=== PATIENT | female | born 1995 | race Caucasian/White ===

== ENCOUNTER 2022-04-21 15:58 | Emergency (ER) | payer OTHER, SELFPAY ==
[2022-04-21 16:00] VITALS: BP 124/92; PULSE 104; RESP 16; TEMP 36.8; O2SAT 100; BMI 28.1
[2022-04-21] MEDS: Ondansetron 4 MG/2 ML Vial IV (19:08)
[2022-04-21] MEDS: 0.9% Normal Saline 1,000 ML 1000 ML IV (19:08)
--- NOTE | 2022-04-21 19:22 | EDS_ITS ---
HPI History of Present Illness Chief Complaint: GI Bleed Informant: patient Narrative Narrative: Patient got up from a nap today. When she got up she threw up once. It was dark brown may be a little bit black but no red blood. No abdominal pain. She threw up 1 more time after she got here. She states it was more yellow than. She has a little bit of nausea now but overall feels better. She is not having pain. She was feeling fine when she went to sleep. No history of GI bleeds. No anticoagulation. No abdominal surgery. Last menstrual cycle was normal and ended about a week ago. No lower abdominal or pelvic pain either. No known history of dyspepsia. PFSH PFSH Home Medications ondansetron 4 mg disintegrating tablet 4 mg PO Q8H PRN nausea and vomiting #10 tabs 04/21/22 [Rx Last Taken Unknown] Allergy/AdvReac Type Severity Reaction Status Date / Time No Known Allergies Allergy Verified 04/21/22 16:01 Social History Smoking Status: Never smoker ROS ROS ED Constitutional Constitutional ED: Denies chills or fever(s) ENT ENT ED: Denies rhinorrhea or sore throat Cardiovascular Cardiovascular: Denies chest pain or palpitations Respiratory/Chest Respiratory/Chest: Denies cough or dyspnea Gastrointestinal Gastrointestinal: Reports nausea and vomiting; Denies abdominal pain, constipation, diarrhea or melena Genitourinary Genitourinary ED: Denies hematuria Musculoskeletal Musculoskeletal: Denies arthralgias or myalgias Integumentary Denies rash Neurologic Neurologic: Denies headache(s), paresthesias or weakness Psychiatric Psychiatric: Denies anxiety Hematologic/Lymphatic Hematologic/Lymphatic: Denies easy bleeding or easy bruising Allergic/Immunologic Allergic/Immunologic ED: Denies urticaria EXAM Physical Exam Const Vital Signs: 04/21/22 16:00 04/21/22 20:37 Temperature 98.3 F 98.3 F Temperature Source Temporal Temporal Pulse Rate 104 H 89 Respiratory Rate 16 16 Blood Pressure 124/92 H 106/64 Blood Pressure Mean 102 78 Pulse Ox 100 100 Oxygen Delivery Method Room Air Room Air Positive well nourished and well developed General Appearance ED: well developed and NAD HEENT Reports moist mucous membranes Eyes EOMs intact bilaterally Neck no lymphadenopathy and supple Resp normal respiratory effort and clear to auscultation bilaterally Cardio regular rate, regular rhythm and no murmurs Rate: Negative for tachycardic GI normal to inspection, nondistended, normoactive bowel sounds, non-tender, non- distended and no masses Inspection: Negative for abdominal distention Palpation: soft; Negative for tender or guarding Back/Spine no CVA tenderness Extremity General Extremety ED: Negative for edema or tenderness General Extremity: Negative for edema Neuro Sensorium / Orientation: alert Psych mental status grossly normal Skin no rashes or lesions noted MDM MDM MDM Narrative Medical decision making narrative: Patient CBC is normal including white count hemoglobin and platelets. Electrolytes show no marked abnormalities. Patient's recheck. Her abdomen is still benign. She has not had recurrent symptoms. We will get her home with meds for nausea even though the nausea is really better. I recommend she take either Prilosec or Nexium once a day for at least the next week to see if we can get her stomach to calm down as I am concerned she may have a component of gastritis. If she has pain, fevers or recurrent vomiting blood in the vomitus or any other concerns she should return. Lab Data Attestation: I reviewed the patient's lab results. Labs: Laboratory Results - last 24 hr 04/21/22 04/21/22 20:33 20:33 WBC 8.3 RBC 5.07 Hgb 14.9 Hct 45.6 MCV 89.9 MCH 29.4 MCHC 32.7 RDW Std Deviation 40.4 RDW Coeff of Vero 12.4 Plt Count 312 MPV 8.9 Immature Gran % (Auto) 0.200 Neut % (Auto) 91.4 H Lymph % (Auto) 4.8 L [place] % (Auto) 3.3 Eos % (Auto) 0.1 Baso % (Auto) 0.2 Absolute Neuts (auto) 7.5 Absolute Lymphs (auto) 0.40 L Nucleated RBC % 0 Differential Comment SEE COMMENT Platelet Estimate ADEQUATE RBC Morphology N CHROM Anisocytosis RARE Macrocytosis RARE Sodium 138 Potassium 3.9 Chloride 107 Carbon Dioxide 24.0 Anion Gap 7 BUN 13 Creatinine 0.80 Estim Creat Clear Calc 104.54 Est GFR (MDRD) Af Amer 112 Est GFR (MDRD) Non-Af 92 BUN/Creatinine Ratio 16.1 Glucose 104 Calcium 8.3 L Discharge Plan Triage Chief Complaint: GI Bleed ED Provider: Santiago Cuadra Dx/Rx/DC Orders Clinical Impression: Nausea & vomiting, History of hematemesis Instructions: ED Gastritis (Adult) Prescriptions: New ondansetron 4 mg tablet,disintegrating 4 mg PO Q8H PRN (Reason: nausea and vomiting) Qty: 10 0RF Primary Care Provider: aRul Boone Referrals: Raul Boone MD [Primary Care Provider] - 1 Week Activity Restrictions/Additional Instructions: Take 1 Nexium or Prilosec ceir-run-welgaix daily for the next week. Disposition Disposition: Home, Self Care
[2022-04-21 20:37] VITALS: BP 106/64; PULSE 89; RESP 16; TEMP 36.8; O2SAT 100
[2022-04-21 20:50] LABS: Absolute Neutrophil Count 7.5 X10^3/uL (2.0-7.7); Basophil# 0.02 X10^3/uL; Basophil% 0.2 % (0-1); Eosinophil# 0.01 X10^3/uL; Eosinophils% 0.1 % (0-5); Hematocrit 45.6 % (37-47); Hemoglobin 14.9 g/dL (12.0-15.0); Lymphocyte % 4.8 % (19-41); Mean Corp Hgb Conc 32.7 g/dL (32-36); Mean Corpuscular Hgb 29.4 pg (27.0-32.0); Mean Corpuscular Volume 89.9 fL (81-99); Mean Platelet Vol. 8.9 fl (6.2-12.0); Monocyte# 0.27 X10^3/uL; Monocyte% 3.3 % (0-10); NRBC Flagged by Analyzer 0 % (0-5); Neutrophil # 7.53 X10^3/uL (2.7-7.7); Neutrophil % 91.4 % (47-70); POSITIVE DIFFERENTIAL YES; Platelet Count 312 K/mm3 (150-450); RBC Distribution Width CV 12.4 % (11.6-14.6); RBC Distribution Width SD 40.4 fl (35.1-43.9); Red Blood Count 5.07 M/mm3 (4.2-5.4); White Blood Count 8.3 K/mm3 (4.4-11.0)
[2022-04-21 21:09] LABS: Anion Gap 7 (5-15); BUN 13 mg/dL (7-18); BUN/Creat Ratio 16.1 RATIO (10-20); Calcium,Total 8.3 mg/dL (8.5-10.1); Chloride 107 mmol/L (98-107); EST Glomerular Filtration Rate 92 mL/min (>60); Est Glom Filt Rate - Afr Amer 112 mL/min (>60); Estimated Creatinine Clearance 104.54 ml/min; Glucose 104 mg/dL (74-106); Potassium 3.9 mmol/L (3.5-5.1); Sodium Level 138 mmol/L (136-145)
[2022-04-21 21:30] LABS: Differential Indicated SCAN CRITERIA MET
[2022-04-21 21:42] LABS: Platelet Estimate ADEQUATE (ADEQ); Red Cell Morphology N CHROM NORMAL (NORM C&C)
[2022-04-21 21:43] LABS: Anisocytosis RARE; Macrocytosis RARE
== END 2022-04-21 22:46 | disposition home or self-care (01) ==
PROVIDERS: Emergency Provider Emergency Medicine; PCP Internal Medicine; Visit Provider Emergency Medicine
DX: K92.2 Gastrointestinal hemorrhage, unspecified (principal); R11.2 Nausea with vomiting, unspecified
CPT/HCPCS: 36415; 80048; 85025; 96361; 96374; 99282; J7030; A4216; J2405

== ENCOUNTER 2024-01-12 13:08 | Emergency (ER) | payer OTHER, SELFPAY ==
[2024-01-12 13:08] VITALS: BP 129/85; PULSE 71; RESP 18; TEMP 36.4; O2SAT 97; BMI 29.9
--- NOTE | 2024-01-12 13:18 | EKG12_ITS ---
Test Reason : PALPS Blood Pressure : / mmHG Vent. Rate : 058 BPM Atrial Rate : 058 BPM P-R Int : 140 ms QRS Dur : 084 ms QT Int : 426 ms P-R-T Axes : 027 028 -04 degrees QTc Int : 418 ms Sinus bradycardia with sinus arrhythmia Poor R wave progression Borderline No previous ECGs available Confirmed by Ranjan Disla ([id number]), editor city NASREEN HALE ([id number]) on 01/15/2024 1:23:03 PM Referred By: Confirmed By:Ranjan Disla
--- NOTE | 2024-01-12 13:36 | RAD_ITS ---
STUDY: X-RAY CHEST REASON FOR EXAM: Female, 28 years old. SOB, lightheaded TECHNIQUE: Frontal and lateral views of the chest. COMPARISON: None. FINDINGS: There are monitoring devices. The lungs are clear and expanded. There is no demonstrated pleural abnormality. Normal size heart. Normal mediastinum and reid. Normal visualized pulmonary arteries. Normal visualized aortic arch and descending thoracic aorta. Normal visualized thoracic spine. Normal visualized ribs, clavicles, and shoulders. There is no demonstrated abnormality of the visualized soft tissue structures of the upper abdomen. RAD/Chest PA and Lateral IMPRESSION: Normal x-ray examination of the chest. Electronically Signed: Benny Sanchez MD at 14:39 EDT ,
[2024-01-12] MEDS: 0.9% Normal Saline (1000mL) 1,000 ML 999 ML IV (13:43)
--- NOTE | 2024-01-12 13:44 | EX.ED.DYSGE1 ---
HPI History of Present Illness Chief Complaint: Palpitations Informant: patient Narrative Narrative: Patient is a 28-year-old female with no significant past medical history, presenting with lightheadedness and near syncope. 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 States she woke up feeling okay in the morning. She states throughout the day she felt she was going to blackout. She reports feeling dizzy and short of breath. She felt like she could not catch her breath. She notes at 1 point she started have some numbness and tingling in her bilateral pinky fingers. Today she does generally feels weak and dizzy. She has a mild headache and reports some mild photophobia. Denies any nausea or vomiting. Denies associate abdominal pain or chest pain. Denies any urinary symptoms. Is not concerned for . Does not take any estrogen or hormonal medication. Does not take any medicine on a daily basis. Reports that her mother had a STEMI in her 60s. Denies any leg swelling, recent travel or history of DVT/PE. Denies any URI symptoms such as nasal congestion or sore throat. No other complaints or concerns at this time. PFSH PFS Medical History no medical history Home Medications ?Medication ?Instructions ?Recorded ?Last Taken ?Type NK 01/12/24 Unknown History Allergy/AdvReac Type Severity Reaction Status Date / Time No Known Allergies Allergy Verified 01/12/24 13:12 Surgical History no surgical history Social History Smoking Status: Never smoker ROS ROS ED Constitutional Constitutional ED: Reports other Details: Dizzy, lightheaded ; Denies chills or fever(s) Eyes Eyes: Reports other Details: Mild photophobia ; Denies blurry vision ENT ENT ED: Denies rhinorrhea or sore throat Cardiovascular Cardiovascular: Reports palpitations; Denies chest pain Respiratory/Chest Respiratory/Chest: Reports dyspnea and dyspnea on exertion; Denies cough or sputum Gastrointestinal Gastrointestinal: Denies abdominal pain, diarrhea, nausea or vomiting Musculoskeletal Musculoskeletal: Denies arthralgias or myalgias Integumentary Denies rash Neurologic Neurologic: Reports headache(s) and paresthesias Psychiatric Psychiatric: Denies anxiety or depression Hematologic/Lymphatic Hematologic/Lymphatic: Denies easy bleeding or easy bruising EXAM Physical Exam Const Vital Signs: 01/12/24 13:08 01/12/24 13:24 01/12/24 14:03 Temperature 97.5 F L Temperature Source Oral Pulse Rate 71 Pulse Rate [Lying] 58 L Pulse Rate [Sitting (for 1 minute prior to obtaining)] 60 Pulse Rate [Standing (for 1 minute prior to obtaining)] 78 Respiratory Rate 18 Respiratory Effort Normal Blood Pressure 129/85 H Blood Pressure [Lying] 111/61 Blood Pressure [Sitting (for 1 minute prior to obtaining)] 110/76 Blood Pressure [Standing (for 1 minute prior to obtaining)] 117/70 Blood Pressure Mean 99 Blood Pressure Mean [Lying] 77 Blood Pressure Mean [Sitting (for 1 minute prior to obtaining)] 87 Blood Pressure Mean [Standing (for 1 minute prior to obtaining)] 85 Pulse Ox 97 Oxygen Delivery Method Room Air 01/12/24 14:08 01/12/24 15:00 01/12/24 16:00 Temperature Temperature Source Pulse Rate 72 55 L 54 L Pulse Rate [Lying] Pulse Rate [Sitting (for 1 minute prior to obtaining)] Pulse Rate [Standing (for 1 minute prior to obtaining)] Respiratory Rate 16 Respiratory Effort Blood Pressure 117/70 107/67 107/67 Blood Pressure [Lying] Blood Pressure [Sitting (for 1 minute prior to obtaining)] Blood Pressure [Standing (for 1 minute prior to obtaining)] Blood Pressure Mean 85 80 80 Blood Pressure Mean [Lying] Blood Pressure Mean [Sitting (for 1 minute prior to obtaining)] Blood Pressure Mean [Standing (for 1 minute prior to obtaining)] Pulse Ox 98 98 99 Oxygen Delivery Method Room Air Room Air Room Air Positive well nourished and well developed General Appearance ED: well developed and NAD HEENT Reports TM's clear and moist mucous membranes HEENT Narrative: Normal nasal mucosa, normal oropharynx Tympanic Membrane ED: Yes TM's clear Eyes PERRL and EOMs intact bilaterally General Eye ED: Negative for pale conjunctiva Neck supple Chest Wall inspection of chest normal Resp normal respiratory effort and clear to auscultation bilaterally Cardio regular rhythm and no murmurs Rate: bradycardia GI normal to inspection, nondistended, normoactive bowel sounds and non-tender Extremity normal to inspection General Extremety ED: Negative for edema or tenderness General Extremity: Negative for edema Neuro oriented x3 Sensorium / Orientation: alert Motor Exam: Negative for general weakness Psych mental status grossly normal Skin no rashes or lesions noted and no wounds MDM MDM MDM Narrative Medical decision making narrative: Patient is evaluated with lightheadedness and sounds like near syncope. She is reporting palpitations. Overall she is well-appearing. Vital signs are normal. She does have some mild resting bradycardia however patient is quite active and I suspect this is physiologic. Will obtain workup including CBC, BMP, urinalysis, urine , EKG, single high-sensitivity troponin and orthostatics. Will check a chest x-ray and a COVID swab. Patient is PE RC negative I do not think she requires D-dimer or further workup for pulmonary emboli. Differential includes viral syndrome, anemia, pericarditis, myocarditis, arrhythmia, pneumonia, pneumothorax, arrhythmia. Chest x-ray viewed by myself as well as radiology does not show any acute process. Lab work shows a mild elevation of her hemoglobin (15.1) and a chloride is mildly high at 108. Her creatinine is normal at 1.02 but is mildly above her baseline of 0.8 (this was in 04/14). Patient's orthostatics are negative but she does have an increase of her heart rate with reproduction of her symptoms. No change in her blood pressure. On repeat evaluation patient is cleared for headache. She is given dose of IV Toradol. On repeat evaluation after receiving the Toradol and a liter of IV fluids she feels better. She has no complaints at this time and is comfortable going home. Her workup is otherwise negative including a normal high sensory troponin. The exact cause of her symptoms is not clear but at this time I feel that patient can be discharged home. Is encouraged to follow-up with her primary care doctor. COVID test is negative as well. Lab Data Attestation: I reviewed the patient's lab results. Labs: Laboratory Results - last 24 hr 01/12/24 01/12/24 13:20 13:41 WBC 7.6 RBC 5.23 Hgb 15.1 H Hct 46.3 MCV 88.5 MCH 28.9 MCHC 32.6 RDW Std Deviation 43.4 RDW Coeff of Vero 13.3 Plt Count 368 MPV 9.4 Immature Gran % (Auto) 0.300 Neut % (Auto) 58.3 Lymph % (Auto) 32.0 [place] % (Auto) 7.4 Eos % (Auto) 1.2 Baso % (Auto) 0.8 Absolute Neuts (auto) 4.4 Absolute Lymphs (auto) 2.42 Nucleated RBC % 0 Sodium 137 Potassium 4.0 Chloride 108 H Carbon Dioxide 21.0 Anion Gap 8 BUN 10 Creatinine 1.02 Estim Creat Clear Calc 91.43 Est GFR (MDRD) Af Amer 84 Est GFR (MDRD) Non-Af 69 BUN/Creatinine Ratio 9.8 L Glucose 100 Calcium 9.6 Troponin I High Sens < 3 L Urine Color Straw Urine Clarity Clear Urine pH 6.5 Ur Specific [place] 1.010 Urine Protein Negative Urine Glucose (UA) Normal Urine Ketones Negative Urine Occult Blood 25 H Urine Nitrite Negative Urine Bilirubin Negative Urine Urobilinogen Normal Ur Leukocyte Esterase Negative Urine RBC 0 SEEN Urine WBC 0 SEEN Ur Squamous Epith Cells 0-5 SEEN Urine Bacteria 1+ Urine Mucus 0 SEEN Urine Test Negative Radiography Diagnostic Testing: Clinical Impression(s) from Imaging Studies Chest X-Ray 01/12/24 13:36 IMPRESSION: Normal x-ray examination of the chest. Electronically Signed: Benny Sanchez MD at 14:39 EDT , Rhythm Strip Rhythm Strip: Sinus Rhythm Rate: 58 Ectopy: None EKG Initial EKG: Attestation: I personally reviewed and interpreted this EKG as follows: Interpretation: Sinus Bradycardia Comments: Sinus bradycardia at a rate of 58 bpm with sinus arrhythmia Normal axis Nonspecific T wave inversion in 3 and aVF Discharge Plan Triage Chief Complaint: Palpitations ED Provider: Kalyn Sapp Dx/Rx/DC Orders Clinical Impression: Dizziness, Headache Instructions: ED Dizziness, Uncertain Cause Prescriptions: No Action NK Primary Care Provider: Raul Boone Referrals: Raul Boone MD [[facility]] - Activity Restrictions/Additional Instructions: Please follow-up with your primary care doctor. Your workup today was largely normal. There was some borderline mild dehydration on your workup but no other acute abnormalities which is reassuring. Please continue to push fluids, alternate ibuprofen and Tylenol as needed for discomfort and follow-up with your primary care doctor. If you have progression of symptoms or further concerns please return to the emergency room. Print Language: Indonesian Disposition Disposition: Home, Self Care
[2024-01-12 13:48] LABS: Mucous, Urine 0 SEEN /hpf (<or=2+); Red Blood Cells-Urine 0 SEEN /hpf (0-5); White Blood Cells 0 SEEN /hpf (0-5)
[2024-01-12 13:50] LABS: Absolute Lymphocyte Count 2.42 X10^3/uL (0.83-4.51); Absolute Neutrophil Count 4.4 X10^3/uL (2.0-7.7); Basophil# 0.06 X10^3/uL; Basophil% 0.8 % (0-1); Eosinophil# 0.09 X10^3/uL; Eosinophils% 1.2 % (0-5); Hematocrit 46.3 % (37-47); Hemoglobin 15.1 g/dL (12.0-15.0); Lymphocyte # 2.42 X10^3/ul (0.83-4.51); Mean Corp Hgb Conc 32.6 g/dL (32-36); Mean Corpuscular Hgb 28.9 pg (27.0-32.0); Mean Corpuscular Volume 88.5 fL (81-99); Mean Platelet Vol. 9.4 fl (6.2-12.0); Monocyte# 0.56 X10^3/uL; Monocyte% 7.4 % (0-10); NRBC Flagged by Analyzer 0 % (0-5); Neutrophil # 4.41 X10^3/uL (2.7-7.7); Neutrophil % 58.3 % (47-70); Platelet Count 368 K/mm3 (150-450); RBC Distribution Width CV 13.3 % (11.6-14.6); RBC Distribution Width SD 43.4 fl (35.1-43.9); Red Blood Count 5.23 M/mm3 (4.2-5.4); White Blood Count 7.6 K/mm3 (4.4-11.0)
[2024-01-12 13:54] LABS: Color, Urine Straw (Yellow); Glucose, Dipstick Normal (Normal); Ketone-Dipstick Negative (Negative); Leukocyte Esterase-Dipstick Negative /ul (Negative); Nitrite-Dipstick Negative (Negative); Occult Blood-Urine 25 /ul (Negative); Protein-Dipstick Negative (Negative); Urine Bilirubin Dipstick Negative (Negative); Urine Clarity Clear (Clear); Urine Urobilinogen Normal (Normal); Urine pH 6.5 (5.0 - 8.0)
[2024-01-12 14:03] VITALS: BP 110/76; BP 111/61; BP 117/70; PULSE 58; PULSE 60; PULSE 78
[2024-01-12 14:04] LABS: Internal QC Validated? YES +Cl - CLEAR BKGD
[2024-01-12 14:05] LABS: Pregnancy, Urine Negative Negative; Record Kit Lot#,Urine Preg 772476
[2024-01-12 14:08] VITALS: BP 117/70; PULSE 72; RESP 16; O2SAT 98
[2024-01-12 14:08] LABS: Anion Gap 8 (5-15); BUN 10 mg/dL (7-18); BUN/Creat Ratio 9.8 RATIO (10-20); Calcium,Total 9.6 mg/dL (8.5-10.1); Chloride 108 mmol/L (98-107); Creatinine, Serum 1.02 mg/dL (0.55-1.02); EST Glomerular Filtration Rate 69 mL/min (>60); Est Glom Filt Rate - Afr Amer 84 mL/min (>60); Estimated Creatinine Clearance 91.43 ml/min; Glucose 100 mg/dL (74-106); Sodium Level 137 mmol/L (136-145); Troponin-I HS < 3 pg/mL (3.0-54.0)
[2024-01-12 14:10] LABS: Bacteria 1+ /hpf (None Seen); Squamous Epithelial Cells - UA 0-5 SEEN /hpf (5-10)
[2024-01-12 15:00] VITALS: BP 107/67; PULSE 55; O2SAT 98
[2024-01-12] MEDS: Ketorolac 15 MG/ML Vial IV (15:58)
[2024-01-12 16:00] VITALS: BP 107/67; PULSE 54; O2SAT 99
[2024-01-12 16:52] VITALS: BP 107/67; PULSE 69; RESP 16; TEMP 36.6; O2SAT 99
== END 2024-01-12 17:06 | disposition home or self-care (01) ==
PROVIDERS: Emergency Provider Emergency Medicine; PCP Internal Medicine; Visit Provider Emergency Medicine
DX: R00.2 Palpitations (principal); R42 Dizziness and giddiness; R51.9 Headache, unspecified
CPT/HCPCS: 71046; 80048; 81001; 81025; 84484; 85025; 87631; 93005; 96361; 96374; 99283; J7030; A4216